=== PATIENT | male | born 1955 | race Caucasian/White ===

== ENCOUNTER 2023-12-14 07:43 | Observation (INO) ==
--- NOTE | 2023-12-02 09:44 | Anesthesiology Consultation ---
Date of Service December 02, 2023 Assessment & Plan (1) Encounter for pre-operative examination: - Check BSG AM DOS - Infectious disease screening: Per assessment on 12/02/23: No known infectious disease contacts or current infectious disease symptoms. No noted recent Covid positive test result. - Pulmonary visit (11/30/23): "Impression: 68-year-old male with prior history of stage III colon cancer status post resection and chemotherapy now with enlarging PET avid pulmonary nodule suspicious for metastatic disease. Biopsy is warranted. Recommendations: 1. Images were independently reviewed and I review ed with the patient. We discussed options for tissue diagnosis to include CT- guided biopsy versus robotic assisted navigational bronchoscopy. I think the size of the lesions and the location make them amenable to navigational bronchoscopy and the patient has agreed to proceed. Will get a follow-up noncontrast CT scan of the chest performed to have imaging within 30 days of the procedure and he will be scheduled tentatively for the . Should have path results available within 3 to 5 days postprocedure. Additional recommendations will be based on results of biopsy. Patient does have a small pleural effusion identified on the PET scan which is new from the prior CT scan. Will see if this recurs on the follow-up imaging. If so, sampling may be warranted. 2. Patient will continue to follow with his medical oncology providers and primary care providers for management of his other issues. 3. History of tobacco abuse: Patient was congratulated on smoking cessation and encouraged to remain free of all tobacco products. His PFTs demonstrated nonproportional reduction in both FEV1 and FVC without obstructive physiology. As he is asymptomatic, would not recommend any additional evaluation at this time.. Follow Up: 1 to 2 weeks post bronchoscopy" - Preop testing: No recent EKG. Will order EKG for DOS. Chart Review Chart Review: Acceptable Risk for Surgery (pending preop EKG DOS) and Patient NOT seen in Pre Admission Testing History Surgery Operation Date: 12/14/23 09:50 Proposed Procedures p Robotic Navigational Bronchoscopy - Benigno Lima MD s Endobronchial Ultrasound - Benigno Lima MD Height/Weight Height: 5 ft 10 in Weight: 104.326 kg Allergies Allergy/AdvReac Type Severity Reaction Status Date / Time atorvastatin AdvReac Intermediate Elevated Verified 12/02/23 09:47 liver studies naproxen AdvReac Intermediate Ulcers Verified 12/02/23 09:47 Medications Home Medications Medication Instructions Recorded Confirmed Last Taken cyanocobalamin (vitamin B-12) 500 1,000 mcg PO QAM 06/16/19 12/02/23 09/08/23 mcg tablet multivitamin 1 tab PO QAM 06/16/19 12/02/23 09/08/23 cholecalciferol (vitamin D3) 25 2,000 unit PO QAM 11/26/20 12/02/23 09/08/23 mcg (1,000 unit) capsule omeprazole 40 mg capsule,delayed 40 mg PO BID #180 caps 07/26/23 12/02/23 09/08/23 release ascorbic acid (vitamin C) 500 mg 1,000 mg PO QAM 09/02/23 12/02/23 09/08/23 capsule losartan 25 mg tablet 25 mg PO QAM 09/02/23 12/02/23 09/08/23 hydrochlorothiazide 25 mg tablet 25 mg PO QAM #90 tabs 09/07/23 12/02/23 09/08/23 amlodipine 10 mg tablet 10 mg PO QAM #90 tabs 09/28/23 12/02/23 Unknown rosuvastatin 20 mg tablet 20 mg PO HS #90 tabs 11/01/23 12/02/23 Unknown Past Medical History Medical History Cobalamin deficiency GERD (gastroesophageal reflux disease) History of colon cancer, stage III (2020) Stage III, sx tx and chemo (6 months) Hx of colonic polyps Hx of gastric ulcer "years ago" required PRBC's Hypercholesteremia Hypertension Lung nodule seen on imaging study Prediabetes Past Family History Family History Father Heart disease Diabetes Hypertension Denies family history of Ovarian cancer Prostate cancer Myocardial infarction Breast cancer Colorectal cancer Past Surgical History Surgical History H/O arthroscopic knee surgery R/L H/O partial resection of colon History of back surgery History of carpal tunnel release Right History of tonsillectomy Hx of colonoscopy with polypectomy S/P decompression of ulnar nerve at elbow Right Social History Smoking Status: Former smoker tobacco type: cigarettes Smoking cigarettes per day: 2 PPD Do You Dip or Chew Tobacco: No Smoking End Date: quit 15 years Hx Alcohol Use: Yes Alcohol type: beer alcohol intake frequency: a few times a week Hx Substance Use: No substance use type: does not use Lab Results Anesthesia Preop Results Results Anesthesia Widget: Na 140 mmol/L (136-145) 11/08/23 K 3.6 mmol/L (3.5-5.1) 11/08/23 Cl 106 mmol/L (98-107) 11/08/23 CO2 30.0 mmol/L (21-32) 11/08/23 BUN 15.0 mg/dL (7-18) 11/08/23 Creat 1.00 mg/dL (0.6-1.4) 11/08/23 Glucose Level 147 mg/dL H 11/08/23 Testing Laboratory Results 11/08/23 WBC 4.9 H/H 15.2/46.3 PLATELETS 192 Pulmonary Function Test Date: 11/30/23 Mild proportional reduction in both FEV1 and FVC with preserved ratio. Flow- volume loops unremarkable. Recommend consideration of lung volumes and diffusion capacity if clinically indicated. Other Testing CT Thorax Date: 10/25/23 Multiple new suspicious nodules in both lungs with increasing size of previously described nodules. Diagnosis of exclusion is malignancy however, as I suspected this is in a mesh Gayle, fungal processes should also be considered particularly as one of these lesions is cavitary. Stable lipoma in right pectoralis muscle. Evidence of old granulomatous disease in chest and spleen.
[2023-12-14] MEDS: LR 15ML/HR IV SCH (08:30)
--- NOTE | 2023-12-14 08:41 | History & Physical Bridge Note ---
Date of Service December 14, 2023 History & Physical Bridge Note I have examined the patient, reviewed the History & Physical and in the interval since the performance of the History & Physical I have noted the following changes of clinical significance: no changes noted
[2023-12-14] MEDS ORDERED: fentaNYL citrate PF 100 MCG/2 ML VIAL IV PRN (08:55)
[2023-12-14] MEDS ORDERED: ONDANSETRON INJ 2 MG/ML 2 ML VIAL IV PRN (08:55)
[2023-12-14] MEDS ORDERED: PROMETHAZINE HCL 6.25 MG in SODIUM CHLORIDE 0.9% 50 ML IV PRN (08:55)
[2023-12-14] MEDS ORDERED: LABETALOL HCL IV 5 MG/ML 20ML IV PRN (08:55)
[2023-12-14] MEDS ORDERED: NALOXONE HCL 0.4 MG/1 ML VIAL/CARP IV PRN (08:55)
[2023-12-14] MEDS ORDERED: FLUMAZENIL 0.1 MG/1 ML 10 ML VIAL IV PRN (08:55)
[2023-12-14] MEDS ORDERED: ePHEDrine sulfate 50 MG/ML AMP IV PRN (08:55)
[2023-12-14] MEDS ORDERED: ATROPINE SULFATE 0.1 MG/ML 10ML SYR IV PRN (08:55)
[2023-12-14] MEDS ORDERED: fentaNYL citrate PF 100 MCG/2 ML VIAL ONE (09:03)
[2023-12-14] MEDS ORDERED: PROPOFOL IV EMULSION 10 MG/ML 20 ML VIAL IV ONE (09:04)
[2023-12-14] MEDS ORDERED: MIDAZOLAM HCL 1 MG/ML 2ML VIAL ONE (09:04)
[2023-12-14] MEDS ORDERED: GLYCOPYRROLATE 0.2 MG/ML VIAL ONE (12:00)
[2023-12-14] MEDS ORDERED: NEOSTIGMINE METHYLSULFATE 1 MG/ML 10ML VIAL ONE (12:00)
--- NOTE | 2023-12-14 12:22 | Procedure Note ---
Procedure Note: Bronchoscopy Procedure Procedure: Fiberoptic bronchoscopy Electromagnetic navigational bronchoscopy with fluoroscopic guidance Endobronchial ultrasound with transbronchial needle aspiration of lymph nodes, single station Electromagnetic navigational bronchoscopy with transbronchial biopsies under fluoroscopic guidance, multiple sites Electromagnetic navigational bronchoscopy with transbronchial brushings under fluoroscopic guidance Electromagnetic navigational bronchoscopy with fine-needle aspiration under fluoroscopic guidance Provider: Benigno Lima MD Consent: Signed by patient and timeout verified prior to procedure. Procedure: Patient was brought to the OR suite. Consent was verified. Appropriate radiographic studies had been reviewed prior to the procedure. General anesthesia was initiated by the anesthesia team and the patient was intubated with an 8.0 endotracheal tube. After initiation of general anesthesia, the fiberoptic scope was advanced through the existing endotracheal tube via the adapter. The tube was sounded. It was withdrawn to approximately 5 or 6 cm above the luly and secured in place. A systematic inspection of the airways was then conducted. The right tracheobronchial tree was normal in anatomic configuration with normal mucosa. Left tracheobronchial tree also demonstrated a normal anatomic configuration with normal mucosa. No endobronchial lesions were identified. The fiberoptic scope was then removed. The robotic adapter was then secured to the endotracheal tube and secured using the flexible arm attached to the bed. The patient had previously been placed on a bed with an electromagnetic navigation field and a tilt table in place. The robot was advanced to the head of the bed and the robotic arm was docked to the endotracheal tube via the robotic adapter. Robot arm was withdrawn in normal fashion and the scope attached with the antibuckling device. The robotic scope was then maneuvered into the endotracheal tube where controller registration took place. Once that was confirmed the scope was advanced to the main luly and verified in good position. Navigational registration was then conducted without difficulty. Once registration was completed, the robotic bronchoscope was used to navigate to the lesion in the lingula. Once the scope was approximately 15 to 20 mm from the lesion, a fluoroscopic tomographic spin was conducted with reconstruction of images. The lesion was able to be verified on the tomogram. It was marked and additional navigation was conducted under direct fluoroscopic guidance with augmented fluoroscopy. Once the scope was appropriately angled towards the lesion, under direct fluoroscopic guidance, b iopsy forceps were advanced into the lesion. Total of 6 biopsies including 3 cryobiopsies were taken with touch preps performed and rapid onsite cytologic evaluation conducted. Diagnostic cellular material was not obtained so we redirected the scope to the lesion in the right middle lobe. A repeat tomographic spin was conducted with the lesion identified and marked. Under fluoroscopic guidance, biopsies including cryobiopsies, brushings, and FNA were conducted without lesion. Again diagnostic material was not identified on touch preps in the OR so the scope was then directed to a third lesion located in the left upper lobe. A repeat spin was conducted there. The lesion was easily identified and marked. Augmented fluoroscopy was used to guide biopsies including cryobiopsies of that lesion. After 5 biopsies were taken, mini BAL was performed with instillation of 35 cc of saline which was withdrawn. It was slightly bloody. Will be sent for cytology as well. The robotic scope was then withdrawn into the lumen of the endotracheal tube and the robotic arm detached from the patient's. The scope was removed. The endobronchial ultrasound was then advanced through the adapter via the existing endotracheal tube. A survey of mediastinal lymph node stations was conducted including the 4R, 4L, 7, 10/11 R, and 10/11 L stations. A 1 cm station 7 lymph node was identified. It was biopsied 3 times using a 21-gauge needle. The scope was then withdrawn to the tip of the endotracheal tube and hemostasis was confirmed. Scope was removed from the airway. The patient was turned over to anesthesia for extubation and returned to the PACU having tolerated the procedure well without complication. EBL: Less than 20 ml Impression: 1. Normal inspection bronchoscopy. 2. Navigational bronchoscopy to lesions in the lingula, right middle lobe, and left upper lobe status post biopsies brushings and FNA. Await cytology. Mini BAL was performed. 3. Enlarged subcarinal lymph node status post 21-gauge fine-needle aspiration or endobronchial ultrasound guidance [facility] [place] Codes (Charges) Pulmonary/Thoracic Procedure 1: Pulmonary and Thoracic: 00734 Navigational Bronchoscopy Procedure 2: Pulmonary and Thoracic: 19819 Bronchoscopy w/ transbronchial lung bx Procedure 3: Pulmonary and Thoracic: 29839 Bronchoscopy w/ transbronchial lung bx add'l lobe Procedure 4: Pulmonary and Thoracic: 97845 Bronchoscopy w/ needle bx Procedure 5: Pulmonary and Thoracic: 21651 Bronchoscopy, w/EBUS 1 or 2 mediastinal
[2023-12-14] MEDS ORDERED: ACETAMINOPHEN 325 MG TAB PO PRN (13:09)
--- NOTE | 2023-12-14 13:09 | XRay Report ---
XR chest 1V portable CLINICAL HISTORY: Post Bronchoscopy COMPARISON STUDY: Chest CT December 08, 2023. FINDINGS: There is a large right pneumothorax with right lung collapse. There is mild leftward medias tinal shift. Left lung nodules are better depicted on chest CT of December 08, 2023. There is no left pn eumothorax. A 4.1 cm left midlung airspace opacity is present. IMPRESSION: 1. Large right pneumothorax with right lung collapse and mild leftward mediastinal shift. This findin g will be called/faxed to ordering provider at time of dictation. 2. 4.1 cm left midlung airspace opacity. ACT 112: Negative or not required by law. Electronically signed by: Charlie Garvey M.D. 12/14/2023 1:08 PM
[2023-12-14] MEDS ORDERED: HYDROmorphone INJ 0.5 MG/0.5 ML SYR IV PRN (13:15)
--- NOTE | 2023-12-14 13:15 | Electrocardiogram Report ---
Test Reason : Blood Pressure : / mmHG Vent. Rate : 055 BPM Atrial Rate : 055 BPM P-R Int : 152 ms QRS Dur : 102 ms QT Int : 458 ms P-R-T Axes : 065 008 002 degrees QTc Int : 438 ms Sinus bradycardia Incomplete right bundle branch block Borderline ECG When compared with ECG of 19-JAN-2008 09:45, No significant change was found Confirmed by Simone Jha ([id number]) on 12/14/2023 1:14:33 PM Referred By: Benigno Lima Confirmed By:Simone Jha
--- NOTE | 2023-12-14 13:19 | History & Physical Report ---
Date of Service December 14, 2023 Assessment & Plan (1) Pneumothorax after biopsy: Plan: Large RIGHT-sided pneumothorax status post robotic bronchoscopy with transbronchial biopsy of lesions in the RIGHT middle lobe and LEFT upper lobe. Status postplacement of RIGHT-sided pigtail catheter with significant improvement of pneumothorax. Will continue with chest tube to -20 cm suction for now with repeat chest x-ray later this afternoon. Chest tube can be placed to water seal if the patient is with significant discomfort. If patient has resolution of pneumothorax on follow-up chest x-ray this afternoon, consideration for clamping chest tube overnight with repeat chest x-ray which is ordered for the morning. It is with hopes that this can be removed in the next 24 hours with hopes for discharge to patient to home soon. Pain control with Toradol, Tylenol, and as needed Dilaudid. (2) History of colon cancer, stage III: Plan: Transbronchial biopsy with tissue sampling to aid in staging for patient's ongoing management in the outpatient setting. He follows with Dr. Pratt in [place]. (3) Lung nodule seen on imaging study: Plan: Evaluation as above. (4) Hypercholesterolemia: Plan: Continue statin in the morning. Continue with antihypertensives as well. (5) Prediabetes: Plan: Will add sliding scale coverage. (6) Stage III carcinoma of colon: Plan: Continue with outpatient management after discharge. History of Present Illness Chief Complaint: RIGHT-sided pneumothorax Primary Care Provider: Mckay Wilkins MD Patient had been referred to pulmonary medicine for biopsy and staging of pulmonary nodules noted in a patient with a history of colon cancer. Patient underwent robotic bronchoscopic evaluation today. Unfortunately, he was noted to have a large RIGHT-sided previous procedure pneumothorax. Chest tube was placed and the patient is to be admitted for management and hopefully quick removal of the chest tube for discharged home. Patient still recovering in PACU at the time of evaluation. Historical information from office visit below. Patient is a 68-year-old male who was diagnosed with adenocarcinoma of the colon back in March 2021. He had a partial colectomy demonstrating a moderately differentiated invasive adenocarcinoma. Staging at that point in time was T3 N2. He was referred to Dr. Pratt in [place] and underwent systemic ch emotherapy. He underwent colonoscopy with Dr. Trinh in August of this year demonstrating few polyps which were resected. These were hyperplastic with no evidence of malignancy. The patient had radiographic surveillance performed. His CT of the abdomen did been unremarkable. He was seen in the emergency room back in July with diarrhea and hematochezia. His CT at that point time demonstrated basilar pulmonary nodules. Dedicated CT scan showed multiple pulmonary nodules. Follow-up in 3 to 6 months was recommended. He completed his follow-up CT scan in October. These demonstrated growth compared to CT scan from July and a PET scan was obtained. He showed uptake. He was referred to pulmonary for consideration of a biopsy and possible recurrence/metastatic spread of his colorectal cancer. Patient does have about an [id number] history of tobacco abuse but quit smoking in 2008. He does not cough, wheeze, or expectorate phlegm on a regular basis. He does not use any inhalers. He does not use supplemental oxygen. He maintains a fairly active lifestyle and hunts on a regular basis. He is not limited from a respiratory standpoint. He denies any fevers chills night sweats or other constitutional symptoms. No chest pain. 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 He had no significant occupational or environmental exposures. He does do some woodworking on a rare basis. Allergies Allergy/AdvReac Type Severity Reaction Status Date / Time atorvastatin AdvReac Intermediate Elevated Verified 12/14/23 08:13 liver studies naproxen AdvReac Intermediate Ulcers Verified 12/14/23 08:13 Home Medications Medication Instructions Recorded Confirmed Type cyanocobalamin (vitamin B-12) 500 1,000 mcg PO QAM 06/16/19 12/14/23 History mcg tablet multivitamin 1 tab PO QAM 06/16/19 12/14/23 History cholecalciferol (vitamin D3) 25 2,000 unit PO QAM 11/26/20 12/14/23 History mcg (1,000 unit) capsule omeprazole 40 mg capsule,delayed 40 mg PO BID #180 caps 07/26/23 12/14/23 Rx release ascorbic acid (vitamin C) 500 mg 1,000 mg PO QAM 09/02/23 12/14/23 History capsule losartan 25 mg tablet 25 mg PO QAM 09/02/23 12/14/23 History hydrochlorothiazide 25 mg tablet 25 mg PO QAM #90 tabs 09/07/23 12/14/23 Rx amlodipine 10 mg tablet 10 mg PO QAM #90 tabs 09/28/23 12/14/23 Rx rosuvastatin 20 mg tablet 20 mg PO HS #90 tabs 11/01/23 12/14/23 Rx calcium carbonate (Tums) 200 mg PO BID PRN Heartburn 12/14/23 12/14/23 History Past Med/Surg History Medical History (Updated 12/14/23 @ 14:12 by Bill Fernandes PA-C) Hx of colonic polyps Lung nodule seen on imaging study Hx of gastric ulcer "years ago" required PRBC's Hypercholesteremia Hypertension GERD (gastroesophageal reflux disease) Cobalamin deficiency History of colon cancer, stage III (2020) Stage III, sx tx and chemo (6 months) Prediabetes Surgical History Hx of colonoscopy with polypectomy S/P decompression of ulnar nerve at elbow Right H/O partial resection of colon History of tonsillectomy History of carpal tunnel release Right H/O arthroscopic knee surgery R/L History of back surgery Family History Father Heart disease Diabetes Hypertension Denies family history of Ovarian cancer Prostate cancer Myocardial infarction Breast cancer Colorectal cancer Social History Smoking Status: Former smoker Tobacco Type: Cigarettes packs per day: 1.5; Cigarettes Per Day: 2 PPD; Smoking End Date: quit 15 years; Second Hand Exposure: No; Do You Dip or Chew Tobacco: No; Tobacco Cessation Education Requested by Patient: No Hx Alcohol Use: Yes Alcohol type: beer Hx Substance Use: No Preferred Language: [place] Communication Ability: Effective Visual Impairment: No Limitations Hearing Ability: Normal Clinical Research Monitor Required: No Beliefs That Will Affect Care: None marital status: Current Living Situation: Alone current occupational status: employed current occupation: cemetery laborer at [employer] Other Information That Helps Us Care for You: No Feels Safe at Home: Yes Safety Concerns: Feels Safe At This Time Childhood Exposure to Second-Hand Smoke: Yes caffeine: Yes (coffee) during the past year weight has: remained stable Dental Care, Regularly: No Physical Activity Frequency: Does not Exercise Seatbelt Use: always Sunscreen Use: Yes (occasionally) Assistive Devices: Denture - Upper Review of Systems Review of Systems: Unable to obtain secondary to current mental status in the setting of recovery from PACU. Physical Exam Physical Exam: VITAL SIGNS - Vital signs and nursing notes were reviewed. GENERAL - []-year-old [] appearing [] stated age who is in no acute distress. Communicates well with provider and answers questions appropriately. SKIN - Without rashes or lesions. NOSE - Midline and without cyanosis. No epistaxis or purulent drainage noted. MOUTH/OROPHARYNX - Without perioral cyanosis. Buccal mucosa pink and moist and without leukoplakia or thrush. NECK - Neck with FROM. Supple to palpation. [] lymphadenopathy noted. LUNGS - Chest wall evaluation demonstrates [] chest wall A:P diameter. Auscultation reveals []. CARDIAC - RRR with S1/S2. No murmur, rubs, or gallops appreciated. ABDOMEN - Abdominal inspection demonstrates []. BS normoactive all four quadrants. No tenderness, palpable masses, or ascites noted. EXTREMITIES - Nail clubbing [] present. [] peripheral cyanosis. [] pretibial edema present. +3/5 radial palpated throughout. PSYCH - A&Ox3 and cooperates fully with examiner. Pt is very pleasant and interacts well with examiner. Results & Data Results & Data Vital Signs (Past 12 Hours) Vital Signs Temp Pulse Pulse Resp BP Pulse Ox O2 Del Method 12/14/23 12:30 76 21 150/59 H 91 Oxymask 12/14/23 12:24 36.0 C L 83 20 157/74 H 90 Oxymask 12/14/23 09:30 Mechanical Vent 12/14/23 08:19 36.5 C 56 L 18 139/72 96 Room Air O2 Flow Rate 12/14/23 12:30 10 12/14/23 12:24 15 12/14/23 09:30 12/14/23 08:19 Code Status & VTE Plan VTE Prophylaxis Plan VTE Prophylaxis will be ordered: No Reason for no VTE drug order: Contraindicated Supervising Physician Co-Signing Physician Notes Patient seen and examined. I placed the chest tube. Discussed with AMILCAR and agree with assessment plan as noted PG Care Time/CCT Total # of Minutes Spent Total Time Spent with Patient: Total time spent is greater than 50% in coordination of care (as documented) at patient's floor/unit and/or counseling patient: Coding Level of Care Code 92608 INT INP/OBS CARE MIN Diagnoses Pneumothorax after biopsy J95.811 History of colon cancer, stage III Z85.038 Lung nodule seen on imaging study R91.1 Hypercholesterolemia E78.00 Prediabetes R73.03 Stage III carcinoma of colon C18.9
--- NOTE | 2023-12-14 13:33 | XRay Report ---
XR chest 1V portable CLINICAL HISTORY: f/u u COMPARISON STUDY: Chest radiograph December 14, 2023 at 12:36 PM. FINDINGS: The right pneumothorax has significantly decreased in size following placement of a right p leural catheter. Small residual right pneumothorax is present. There is no left pneumothorax. Mediast inal shift has resolved. Left mid to lower lung opacity has slightly increased. Right mid and lower l néstor airspace opacities are present. There may be left suprahilar opacity. A small amount of gas withi n the right chest wall is present. IMPRESSION: 1. Significant decrease in size of the right pneumothorax following placement of a right pleural cath eter. Small residual pneumothorax. 2. Bilateral airspace opacities, as described above. ACT 112: Negative or not required by law. Electronically signed by: Charlie Garvey M.D. 12/14/2023 1:32 PM
--- NOTE | 2023-12-14 14:39 | Procedure Note ---
Procedure Note Date of Service December 14, 2023 Note Procedure: 14 Chinese pigtail catheter placement Indication: Iatrogenic pneumothorax status post bronchoscopy with transbronchial biopsy Consent risk and benefits were discussed with the patient. He agreed. The patient had been consented regarding potential need for chest tube postbiopsy prior to the bronchoscopy. [employer] Dr. Lima Estimated blood loss: Less than 5 mL Anesthesia: 10 mL 1% lidocaine without epinephrine locally. Procedure: The patient had earlier in the day undergone robotic navigational bronchoscopy with transbronchial biopsies including cryobiopsies for diagnosis of pulmonary nodules in the setting of prior history of colon cancer. In the PACU the patient had a chest x-ray performed which revealed a large right-sided pneumothorax. Chest tube placement was urgently required. The patient was placed in a semiupright seated position. The anterior axillary line lateral to the nipple was cleansed using chlorhexidine and a sterile field established. An area approximately 8 cm lateral to the nipple was anesthetized with lidocaine. The muscle and deeper soft tissues were anesthetized using a finder needle. With the finder needle I was able to aspirate air. The finder needle was then withdrawn. A small skin kathi was made with a scalpel. An 18- gauge needle was then advanced on a similar line until I was able to aspirate air. The syringe was withdrawn leaving the needle in place. A wire was passed through the needle and then the needle was withdrawn leaving the wire in the pleural space. A 14 Chinese dilator was then passed over the wire to dilate the skin and soft tissues. This passed with ease. The dilator was removed leaving the wire in place. A 14 Chinese pigtail catheter was then loaded on a straightening catheter and advanced over the wire into the pleural space. The straight and catheter and wire were removed leaving the pigtail catheter in place. A three-way stopcock was attached. The tube was attached to suction with a 1+ airleak on the Pleur-evac system. The skater catheter fixation system was attached to the chest wall and the catheter secured. Catheter was attached to suction at 20 cm of water. Post procedure chest x-ray is demonstrated improvement in the pneumothorax with small residual air. Tube was placed to 20 cm of suction and will remain on suction overnight The patient tolerated the procedure well. Coding CPT Codes Pulmonary/Thoracic - Pulmonary and Thoracic: 89133 Tube thoracostomy ([id number]) [facility] [place] Procedure Codes (Charges) Pulmonary/Thoracic Procedure 1: Pulmonary and Thoracic: 68817 Tube thoracostomy
[2023-12-14] MEDS ORDERED: CALCIUM CARBONATE 500 MG CHEWABLE TAB PO PRN (14:49)
--- NOTE | 2023-12-14 15:33 | Anesthesiology Progress Note ---
Date of Service December 14, 2023 Anesthesia Post Procedure Vital Signs Vital Signs: Temp Pulse Pulse Resp BP Pulse Ox O2 Del Method 12/14/23 14:25 Nasal Cannula 12/14/23 13:50 36.2 C L 62 17 124/86 97 Nasal Cannula 12/14/23 13:40 62 17 123/85 95 Nasal Cannula 12/14/23 13:30 61 16 130/76 95 Nasal Cannula 12/14/23 13:20 36.1 C L 59 L 16 130/75 95 Nasal Cannula 12/14/23 13:10 64 16 135/79 98 Oxymask 12/14/23 13:00 61 16 136/82 97 Oxymask 12/14/23 12:50 70 23 132/77 95 Oxymask 12/14/23 12:40 66 17 127/89 88 L Oxymask 12/14/23 12:30 76 21 150/59 H 91 Oxymask 12/14/23 12:24 36.0 C L 83 20 157/74 H 90 Oxymask 12/14/23 09:30 Mechanical Vent 12/14/23 08:19 36.5 C 56 L 18 139/72 96 Room Air O2 Flow Rate 12/14/23 14:25 4 12/14/23 13:50 4 12/14/23 13:40 4 12/14/23 13:30 4 12/14/23 13:20 4 12/14/23 13:10 4 12/14/23 13:00 10 12/14/23 12:50 15 12/14/23 12:40 15 12/14/23 12:30 10 12/14/23 12:24 15 12/14/23 09:30 12/14/23 08:19 Transfer of Care Handoff Completed per policy Notes Mental Status: alert / awake / arousable Patient Amnestic to Procedure: Yes Nausea / Vomiting: adequately controlled Pain: adequately controlled Airway Patency, RR, SpO2: stable & adequate BP & HR: stable & adequate Hydration State: stable & adequate Anesthetic Complications: no major complications apparent and see Notes below (Patient had a right pneumothorax 2ndary to the intraop procedure.)
[2023-12-14] MEDS: LIDOCAINE 1% LOCAL 20 ML VIAL ONE (16:01)
[2023-12-14] MEDS: ONDANSETRON INJ 2 MG/ML 2 ML VIAL IV PRN (17:37)
[2023-12-14] MEDS: ROSUVASTATIN CALCIUM 20 MG TAB PO SCH (20:13)
[2023-12-14] MEDS: PANTOprazole 40 MG TAB PO SCH (20:13)
--- NOTE | 2023-12-15 06:43 | XRay Report ---
XR chest 1V portable HISTORY: 68 years-old Male ptx acute shortness of breath COMPARISON: 12/14/2023 1:07 PM TECHNIQUE: AP view of the chest FINDINGS: Right-sided pigtail pleural catheter redemonstrated. Stable size of the small persistent right sided pneumothorax. Bilateral airspace opacities with interstitial coarsening are noted with improved aerat ion of the lungs. IMPRESSION: 1. Stable positioning of the right-sided pleural catheter with small persistent right apical pneumoth orax. 2. Mildly improved aeration of the lungs with persistent mixed interstitial and alveolar opacities. ACT 112: Negative or not required by law. The above report was generated using voice recognition software. It may contain grammatical, syntax o r spelling errors. Electronically signed by: Migel Torres M.D. 12/15/2023 6:42 AM
--- NOTE | 2023-12-15 07:13 | XRay Report ---
XR chest 1V portable HISTORY: 68 years-old Male f/u acute shortness of breath COMPARISON: 12/14/2023, chest CT 12/08/2023. TECHNIQUE: AP view of the chest FINDINGS: Right-sided pleural catheter is again noted. Small right thorax demonstrates 2 cm pleural separation, previously 1.2 cm. Bilateral airspace opacities with interstitial coarsening again noted. The heart is stable in size. Spondylotic spurring of the spine. Pulmonary metastasis better evaluated on the pr ior chest CT. IMPRESSION: 1. Stable positioning of the right-sided pleural catheter with mildly increased size of the right pne umothorax. 2. Persistent bilateral mixed interstitial and alveolar opacities. ACT 112: Negative or not required by law. The above report was generated using voice recognition software. It may contain grammatical, syntax o r spelling errors. Electronically signed by: Migel Torres M.D. 12/15/2023 7:12 AM
[2023-12-15] MEDS ORDERED: ALBUT/IPRATROP 3MG/0.5MG NEB 3 ML VIAL INH PRN (08:32)
[2023-12-15] MEDS ORDERED: DEXTROSE 50% 50 ML SYRINGE IV PRN (08:32)
[2023-12-15] MEDS ORDERED: GLUCAGON FOR INJ 1 MG VIAL SQ PRN (08:32)
[2023-12-15] MEDS ORDERED: CARBOHYDRATES FOR HYPOGLYCEMIA PO PRN (08:32)
[2023-12-15] MEDS ORDERED: GLUCOSE 40% GEL 15 GM TUBE PO PRN (08:32)
[2023-12-15] MEDS ORDERED: GLUCOSE 10 TAB/TUBE PO PRN (08:32)
[2023-12-15 08:36] LABS: Basophils # (auto) 0.03 K/uL (0.00-0.20); Basophils % (auto) 0.5 %; Eosinophils # (auto) 0.08 K/uL (0.00-0.50); Eosinophils % (auto) 1.3 %; Hematocrit (blood only) 39.7 % (42.0-52.0); Hemoglobin 13.1 g/dl (14.0-18.0); Immature Granulocytes # (auto) 0.02 K/uL (0.01-0.20); Immature Granulocytes % (auto) 0.3 %; Lymphocytes # (auto) 1.12 K/uL (1.20-3.40); Lymphocytes % (auto) 17.5 %; Mean Corpuscular Volume 87.8 fL (80.0-100.0); Mean Platelet Volume 10.9 fL (9.4-12.4); Monocytes # (auto) 0.45 K/uL (0.11-0.59); Neutrophils # (auto) 4.69 K/uL (1.40-6.50); Neutrophils % (auto) 73.4 %; Platelet Count 189 K/uL (130-400); RDW Coefficient of Variation 12.9 % (11.5-14.5); RDW Standard Deviation 41.9 fL (36.4-46.3); Red Blood Count 4.52 M/uL (4.70-6.10); White Blood Count 6.39 K/ul (4.8-10.8)
[2023-12-15] MEDS: amLODIPine BESYLATE 5 MG TAB PO SCH (08:56)
[2023-12-15] MEDS: MULTIVITAMIN TAB PO SCH (08:56)
[2023-12-15] MEDS: CHOLECALCIFEROL 25 MCG (1000 UNITS) TAB PO SCH (08:57)
[2023-12-15] MEDS: ASCORBIC ACID 500 MG TAB PO SCH (08:57)
[2023-12-15] MEDS: hydroCHLOROthiazide 25 MG TAB PO SCH (08:58)
[2023-12-15] MEDS: CYANOCOBALAMIN (B-12) 500 MCG TABLET PO SCH (08:58)
[2023-12-15] MEDS: LOSARTAN POTASSIUM 25 MG TAB PO SCH (08:58)
[2023-12-15 09:23] LABS: BUN Creatinine Ratio 12.5 (10-20); Calcium 8.8 mg/dl (8.6-10.3); Creatinine Clr Calc Pharmacy 86.7 ml/min; Est GFR (African American) 93.8 ml/min; Est GFR (Non-African American) 80.9 ml/min; Potassium 3.8 mmol/L (3.5-5.1)
--- NOTE | 2023-12-15 09:47 | Pulmonology Progress Note ---
Date of Service December 15, 2023 Assessment & Plan (1) Pneumothorax after biopsy: Plan: * Large RIGHT-sided pneumothorax status post robotic bronchoscopy with transbronchial biopsy of lesions in the RIGHT middle lobe and LEFT upper lobe. Status postplacement of RIGHT-sided pigtail catheter with significant improvement of pneumothorax. * Chest tube was clamped overnight and repeat chest x-ray this morning shows slight increase in the size of the pneumothorax. Orders placed to place the chest tube back to suction. * Will repeat chest x-ray later this afternoon to assess for reinflation. * If lung reinflate's, will attempt to clamp the tube overnight again. * Continue with pain medications as needed. * Slightly bronchospastic this morning with end expiratory wheeze. Will add as needed DuoNebs. * Pain control with Toradol, Tylenol, and as needed Dilaudid. (2) History of colon cancer, stage III: Plan: * Transbronchial biopsy with tissue sampling to aid in staging for patient's ongoing management in the outpatient setting. He follows with Dr. Pratt in [employer]. (3) Lung nodule seen on imaging study: Plan: * Evaluation as above. (4) Hypercholesterolemia: Plan: * Continue statin in the morning. * Continue with antihypertensives as well. (5) Prediabetes: Plan: * Will add sliding scale coverage if needed. (6) Stage III carcinoma of colon: Plan: * Continue with outpatient management after discharge. Admission and Anticipated Discharge Date Admission Date: December 14, 2023 Subjective Patient was seen and evaluated this morning. He states that he is having some slight discomfort at chest tube insertion site, but otherwise complains of no pleuritic pain, cough, or hemoptysis. He recently had his breakfast without issues. Otherwise, he offers no complaints. Review of Systems Review of Systems: As per HPI. Physical Exam Physical Exam: VITAL SIGNS - Vital signs and nursing notes were reviewed. GENERAL - 68-year-old male appearing his stated age who is in no acute distress. Communicates well with provider and answers questions appropriately. SKIN - RIGHT sided chest tube insertion site clean, dry, an intact. LUNGS - RIGHT sided chest tube in place. Slight decrease in auscultation to the RIGHT sided lung field. Slight expiratory wheezes noted. CARDIAC - RRR with S1/S2. No murmur, rubs, or gallops appreciated. ABDOMEN - BS normoactive all four quadrants. No tenderness, palpable masses, or ascites noted. PSYCH - A&Ox3 and cooperates fully with examiner. Pt is very pleasant and interacts well with examiner. Results & Data Results & Data Vital Signs (Past 12 Hours) Vital Signs Temp Pulse Pulse Resp BP Pulse Ox O2 Del Method 12/15/23 07:55 36.8 C 64 18 132/63 94 Nasal Cannula 12/15/23 07:12 Nasal Cannula 12/15/23 03:17 37.2 C 69 18 144/79 H 93 Nasal Cannula 12/14/23 22:50 37 C 56 L 18 128/69 93 Nasal Cannula O2 Flow Rate 12/15/23 07:55 2.0 12/15/23 07:12 3 12/15/23 03:17 2 12/14/23 22:50 2 PG Care Time/CCT Total # of Minutes Spent Total Time Spent with Patient: Total time spent is greater than 50% in coordination of care (as documented) at patient's floor/unit and/or counseling patient: Coding Level of Care Code 43474 SUB INP/OBS CARE 2/35MIN Diagnoses Pneumothorax after biopsy J95.811 History of colon cancer, stage III Z85.038 Lung nodule seen on imaging study R91.1 Hypercholesterolemia E78.00 Prediabetes R73.03 Stage III carcinoma of colon C18.9
[2023-12-15] MEDS: KETOROLAC TROMETHAMINE 15 MG/ML VIAL IV PRN (13:05)
--- NOTE | 2023-12-15 13:55 | XRay Report ---
XR chest 1V portable CLINICAL HISTORY: f/u COMPARISON STUDY: PET/CT November 27, 2023. Chest radiograph December 15, 2023 at 6:55 AM. FINDINGS: Right pleural catheter remains in place. A small right pneumothorax has significantly decre ased in size since chest radiograph performed earlier today. Cardiomediastinal silhouette is stable. Lung nodules are better depicted on prior CT. There is minimal right basilar opacity. IMPRESSION: Right pleural catheter in place. Significant decrease in size of a small right pneumotho rax. ACT 112: Negative or not required by law. Electronically signed by: Charlie Garvey M.D. 12/15/2023 1:53 PM
--- NOTE | 2023-12-16 08:26 | XRay Report ---
XR chest 1V portable HISTORY: Follow up pneumothorax. COMPARISON: Chest 12/15/2023. FINDINGS: Right-sided pleural catheter remains unchanged in position. Continued decrease in size in t he small right pneumothorax which now demonstrates a maximal pleural gap of 4 mm. Focal small periphe ral density within the left lower lobe has slightly progressed. The heart remains mildly enlarged. No pleural effusions. Mild interstitial thickening persists. No acute fractures. The patient scattered pulmonary nodules are better appreciated on the recent CT examination. IMPRESSION: 1. Continued decrease in size in the small right pneumothorax. The right-sided pleural catheter remai ns unchanged in position. 2. Small focal density within the periphery of the left lower lobe has progressed. 3. Scattered pulmonary nodules are better appreciated on the recent chest CT. ACT 112: Negative or not required by law. Electronically signed by: Austin Palmer M.D. 12/16/2023 8:24 AM
--- NOTE | 2023-12-16 08:50 | Pulmonology Progress Note ---
Date of Service December 16, 2023 Assessment & Plan (1) Pneumothorax after biopsy: Plan: * Large RIGHT-sided pneumothorax status post robotic bronchoscopy with transbronchial biopsy of lesions in the RIGHT middle lobe and LEFT upper lobe. Status postplacement of RIGHT-sided pigtail catheter with significant improvement of pneumothorax. * Chest tube remained to suction overnight. Chest x-ray this morning showed significant improvement of small apical pneumothorax. Orders placed to clamp chest tube with repeat chest x-ray ordered for later this afternoon. If pneumothorax remains small or resolved at this time, plan to pull pigtail catheter later today. * Continue with pain medications as needed. * Wheezing resolved. * Pain control with Toradol, Tylenol, and as needed Dilaudid. (2) History of colon cancer, stage III: Plan: * Transbronchial biopsy with tissue sampling to aid in staging for patient's ongoing management in the outpatient setting. He follows with Dr. Pratt in [place]. (3) Lung nodule seen on imaging study: Plan: * Evaluation as above. (4) Hypercholesterolemia: Plan: * Continue statin in the morning. * Continue with antihypertensives as well. (5) Prediabetes: Plan: * Will add sliding scale coverage if needed. (6) Stage III carcinoma of colon: Plan: * Continue with outpatient management after discharge. Admission and Anticipated Discharge Date Admission Date: December 14, 2023 Subjective Patient seen and evaluated at bedside. He reports that he has some mild discomfort at the insertion site. Slight cough with deep inspiration. He notes that he did have a little bit of blood-tinged cough earlier today. No other complaints at this time. Review of Systems Review of Systems: As per HPI. Physical Exam Physical Exam: VITAL SIGNS - Vital signs and nursing notes were reviewed. GENERAL - 68-year-old male appearing his stated age who is in no acute distress. Communicates well with provider and answers questions appropriately. SKIN - RIGHT sided chest tube insertion site clean, dry, an intact. LUNGS - RIGHT sided chest tube in place. Slight decrease in auscultation to the RIGHT sided lung field. Slight expiratory wheezes noted. CARDIAC - RRR with S1/S2. No murmur, rubs, or gallops appreciated. ABDOMEN - BS normoactive all four quadrants. No tenderness, palpable masses, or ascites noted. PSYCH - A&Ox3 and cooperates fully with examiner. Pt is very pleasant and in teracts well with examiner. Results & Data Results & Data Vital Signs (Past 12 Hours) Vital Signs Temp Pulse Pulse Resp BP Pulse Ox O2 Del Method 12/16/23 07:53 36.6 C 58 L 19 132/72 93 Nasal Cannula 12/16/23 03:12 36.6 C 53 L 18 143/74 H 95 Nasal Cannula 12/15/23 22:46 36.9 C 56 L 16 121/68 94 Nasal Cannula O2 Flow Rate 12/16/23 07:53 3.0 12/16/23 03:12 3 12/15/23 22:46 4 PG Care Time/CCT Total # of Minutes Spent Total Time Spent with Patient: Total time spent is greater than 50% in coordination of care (as documented) at patient's floor/unit and/or counseling patient: Coding Level of Care Code 25751 SUB INP/OBS CARE 2/35MIN Diagnoses Pneumothorax after biopsy J95.811 History of colon cancer, stage III Z85.038 Lung nodule seen on imaging study R91.1 Hypercholesterolemia E78.00 Prediabetes R73.03 Stage III carcinoma of colon C18.9
--- NOTE | 2023-12-16 14:36 | XRay Report ---
XR chest 1V portable HISTORY: Follow up pneumothorax. COMPARISON: Chest 12/16/2023. FINDINGS: The right pleural catheter remains unchanged in position. Stable tiny right apical pneumoth orax with a pleural gap of 4 mm. Small left basilar density has improved. There are low lung volumes. The patient's known scattered pulmonary nodules are better appreciated on the recent CT. Suspect tra ce bilateral pleural effusions. Mild interstitial thickening persists. No evidence for pulmonary reji a. IMPRESSION: 1. Stable tiny right apical pneumothorax. 2. The right pleural catheter is unchanged in position. 3. Trace bilateral pleural effusions. 4. Small focal density within the periphery of the left lower lobe has improved. 5. The patient's known scattered pulmonary nodules are better appreciated on the recent chest CT. ACT 112: Negative or not required by law. Electronically signed by: Austin Palmer M.D. 12/16/2023 2:35 PM
--- NOTE | 2023-12-16 17:00 | Procedure Note ---
Procedure Note Date of Service December 16, 2023 Note Patient seen and examined. EMR reviewed. Discussed with critical care AMILCAR. Agree with his assessment and plan. Pathology was reviewed. Adenocarcinoma of a colorectal etiology identified on the biopsy. The patient was given a printed copy of the report and advised that this represents metastatic colorectal cancer. He expressed understanding and has a follow-up scheduled with his oncologist later this week. Patient's chest tube has been clamped for several hours. Follow-up chest x-ray demonstrated no progression of the pneumothorax. I evaluated the patient. He has no crepitus. He feels well. We returned his tube to suction with no significant air leak. Was deemed appropriate to discontinue the chest tube. The dressing was taken down. On full expiration, the tube was rapidly removed with an occlusive dressing applied. He tolerated it well. The patient is now stable to discharge. He was instructed to return to the emergency room for increasing chest pain or shortness of breath. I recommended that he have a follow-up chest x-ray performed at [facility] on Wednesday. The order will be faxed to them from my office. I will contact him if the chest x-ray is abnormal. This was discussed with the patient and his girlfriend at bedside as well as with the bedside clinical nurse. Questions were answered to the best my ability. They expressed understanding and are in agreement with the plan as outlined. Coding
--- NOTE | 2023-12-16 17:02 | Discharge Summary ---
Date of Service December 16, 2023 Admission HPI Per Admitting Provider Patient had been referred to pulmonary medicine for biopsy and staging of pulmonary nodules noted in a patient with a history of colon cancer. Patient underwent robotic bronchoscopic evaluation today. Unfortunately, he was noted to have a large RIGHT-sided previous procedure pneumothorax. Chest tube was placed and the patient is to be admitted for management and hopefully quick removal of the chest tube for discharged home. Patient still recovering in PACU at the time of evaluation. Historical information from office visit below. Patient is a 68-year-old male who was diagnosed with adenocarcinoma of the colon back in March 2021. He had a partial colectomy demonstrating a moderately differentiated invasive adenocarcinoma. Staging at that point in time was T3 N2. He was referred to Dr. Pratt in [place] and underwent systemic chemotherapy. He underwent colonoscopy with Dr. Trinh in August of this year demonstrating few polyps which were resected. These were hyperplastic with no evidence of malignancy. The patient had radiographic surveillance performed. His CT of the abdomen did been unremarkable. He was seen in the emergency room back in July with diarrhea and hematochezia. His CT at that point time demonstrated basilar pulmonary nodules. Dedicated CT scan showed multiple pulmonary nodules. Follow-up in 3 to 6 months was recommended. He completed his follow-up CT scan in October. These demonstrated growth compared to CT scan from July and a PET scan was obtained. He showed uptake. He was referred to pulmonary for consideration of a biopsy and possible recurrence/metastatic spread of his colorectal cancer. Patient does have about an [id number] history of tobacco abuse but quit smoking in 2008. He does not cough, wheeze, or expectorate phlegm on a regular basis. He does not use any inhalers. He does not use supplemental oxygen. He maintains a fairly active lifestyle and hunts on a regular basis. He is not limited from a respiratory standpoint. He denies any fevers chills night sweats or other constitutional symptoms. No chest pain. 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 He had no significant occupational or environmental exposures. He does do some woodworking on a rare basis. Discharge Data Procedures Performed Operation Date: 12/14/23 09:50 Actual Procedures p Robotic Navigational Bronchoscopy with fluoroscopic guidance, Transbronchial needle aspiration, biopsy and brushing(Not Applicable) - Benigno Lima MD s Endobronchial Ultrasound, Endobronchial lavage aspiration(Not Applicable) - Benigno Lima MD Hospital Course (1) Pneumothorax after biopsy: * Postprocedural pneumothorax requiring placement of 14 [place] pigtail catheter. This continued for suction for about 36 hours at which point in time pneumothorax remained stable clamping trials. Tube was discontinued with an occlusive dressing. The patient will be discharged home with instructions to have a follow-up chest x-ray performed in about 3 days. He should return to the emergency room for increasing chest pain shortness of breath. (2) History of colon cancer, stage III: * Biopsy results were reviewed with the patient he was provided a written copy of the results. Adenocarcinoma of the colorectal etiology identified on biopsy. (3) Lung nodule seen on imaging study: * Evaluation as above. (4) Hypercholesterolemia: * Continue statin in the morning. * Continue with antihypertensives as well. (5) Prediabetes: * Will add sliding scale coverage if needed. (6) Stage III carcinoma of colon: * Continue with outpatient management after discharge.
== END 2023-12-16 18:32 | disposition home or self-care (01) ==
LOC: ASU 07:43 → 2S 07:43